=== PATIENT | female | born 1995 ===

== ENCOUNTER 2022-06-20 10:41 | Emergency (ER) | payer BC | END 2022-06-20 12:18 | disposition home or self-care (01) | LOC: FB.ED 10:41 | DX: O26.851 Spotting complicating pregnancy, first trimester (principal); Z88.0 Allergy status to penicillin; Z87.891 Personal history of nicotine dependence; Z3A.01 Less than 8 weeks gestation of pregnancy | CPT/HCPCS: 36415; 81001; 84702; 99284 ==